=== PATIENT | male | born 1945 | race Caucasian/White ===

== ENCOUNTER 2017-11-26 10:06 | Observation (INO) ==
[2017-11-26 11:00] LABS: Basophils # 0.1 K/mcL (0.0-0.2); Basophils % 0.7 %; Eosinophils # 0.3 K/mcL (0.0-0.6); Eosinophils % 2.5 %; Hematocrit 37.3 % (37.5-50.1); Hemoglobin 13.3 g/dL (12.9-16.9); Immature Granulocytes % 0.4 % (0-4); Lymphocytes # 0.7 K/mcL (0.6-4.6); Lymphocytes % 7.1 %; Mean Corpuscular HGB Conc 35.7 g/dL (31.6-35.5); Mean Corpuscular Hemoglobin 33.3 pg (28.0-33.3); Mean Corpuscular Volume 93.5 fL (83.0-100.0); Mean Platelet Volume 11.9 fL (9.4-12.4); Monocytes # 0.7 K/mcL (0.0-1.3); Monocytes % 6.5 %; Neutrophils # 8.2 K/mcL (1.6-8.9); Platelet Count 136 K/mcL (140-400); Red Blood Count 3.99 M/mcL (4.19-5.50); Red Cell Distribution Width 13.7 % (11.5-14.5); Segmented Neutrophils % 82.8 %
[2017-11-26 11:39] LABS: Albumin 4.5 g/dL (3.5-5.7); Bilirubin,Direct 0.1 mg/dL (0.0-0.2); Bilirubin,Indirect 0.8 mg/dL (0.0-1.2); Bilirubin,Total 0.9 mg/dL (0.3-1.0); Carbon Dioxide 21 mEq/L (23-29); Chloride 108 mEq/L (98-107); Potassium 3.9 mEq/L (3.5-5.1); Sodium 137 mEq/L (136-145)
[2017-11-26 11:45] LABS: Alanine Aminotransferase 6 Units/L (7-52); Albumin/Globulin Ratio 2.4 (1.1-2.2); Alkaline Phosphatase 85 Units/L (34-104); Aspartate Amino Transferase 14 Units/L (13-39); BUN/Creatinine Ratio 22 (6-26); Blood Urea Nitrogen 28 mg/dL (8-23); Globulin 1.9 g/dL (2.4-3.5); Glucose 170 mg/dL (70-105); Lipase 19 Units/L (11-82); Osmolality,Calculated 293 (280-300); Total Protein 6.4 g/dL (6.4-8.9); eGFR For African Americans > 60 (> 60); eGFR For Non-African Americans 56 (> 60)
--- NOTE | 2017-11-26 12:31 | Emergency Department Note ---
START Narrative - START START: I examined this patient and my medical decision-making was reviewed with the PROJECT ENGINEERING DIRECTOR/PA/Advanced Practice Nurse/Resident Physician. I agree with the documented findings, disposition and treatment plan as described except to the extent set forth below. I did see the patient spoke with him and examine home and he does have abdominal pain recent onset and on exam does have mild distention but no reproducible pain, no pulsatile abdominal mass. The abdomen is soft without rigidity, rebound, guarding. I have reviewed the labs. CT scan will be done. 1231 I did review the patient's EKG showed normal sinus rhythm with first-degree AV block without acute ischemic change [address] scan has been reviewed concerning for acute cholecystitis and this is discussed with surgery who recommends a ultrasound. 1521
--- NOTE | 2017-11-26 12:43 | Emergency Department Note ---
Disposition Clinical Impression: Cholecystitis Disposition: Admitted As Inpatient Condition: Good Abdominal Pain HPI - General Chief Complaint: ED Abdominal Pain Stated Complaint: abd pain Time Seen by Provider: 11/26/17 12:16 Source: patient Mode of arrival: private vehicle Limitations: no limitations Nursing Notes Reviewed: Yes Vital Signs Reviewed: Yes - History of Present Illness HPI Narrative: Mr Penaloza is 72 yo M denies medical history presented to [facility] ED with dull mid abdominal pain. Pain started while at home last night. He ate fried chicken, green beans, and peas for dinner, and was drinking a glass of Ice tea with onset of pain. His last bowel movement was 1.5 days ago. He's never had issues like this in the past. He denies taking medications or starting new medications recently. He attempted to "relieve pain with a glass of milk" but was unsuccessful. He has not been able to eat since last night due to pain. He reports associated distension of abdomen. He denies fever, chills, nausea, vomiting. Pain Scale: 8 - Related Data Home Medications Medication Instructions Recorded Confirmed Allopurinol [Zyloprim 300 MG] 300 mg PO DAILY 11/26/17 11/26/17 Amlodipine Besylate [Amlodipine 10 mg PO DAILY 11/26/17 11/26/17 Besylate] Atorvastatin [Lipitor] 10 mg PO HS 11/26/17 11/26/17 Carbidopa/Levodopa 1 tab PO TID 11/26/17 11/26/17 [Carbidopa-Levodopa 25-100 Tab] Diclofenac Sodium [Voltaren] 75 mg PO BID 11/26/17 11/26/17 Labetalol HCl [Labetalol HCl] 200 mg PO BID 11/26/17 11/26/17 Losartan Potassium [Cozaar] 100 mg PO DAILY 11/26/17 11/26/17 Omeprazole [PriLOSEC] 20 mg PO DAILY 11/26/17 11/26/17 OxyCODONE/APAP 5/325 [Percocet 1 tab PO Q8H PRN 11/26/17 11/26/17 5/325 MG] Allergies Allergy/AdvReac Type Severity Reaction Status Date / Time No Known Allergies Allergy Verified 11/26/17 10:15 All systems ED: reviewed and negative except as stated. Review of Systems: As Per HPI Abdominal Pain PMH - Past Medical History Medical history: Reports: hyperlipidemia, hypertension Male Surgical History: Reports: no surgical history Psychiatric history: Reports: no psych history - Social History Smoking status: Former smoker Alcohol use: Reports: none Drug use: Reports: none Physical Exam - General Limitations: no limitations General appearance: alert, in no apparent distress - Head Head exam: atraumatic, normocephalic, normal inspection - Eye Eye exam: Present: normal appearance, PERRL, EOMI - ENT ENT exam: normal exam, normal oropharynx, mucous membranes moist - Chest Chest inspection: Present: normal inspection, symmetric chest wall rise - Respiratory Respiratory exam: Present: normal lung sounds bilaterally - Cardiovascular Cardiovascular exam: Present: regular rate, normal rhythm, normal heart sounds - Abdominal Exam Abdominal exam: Present: soft, Non-Tender, distention, normal bowel sounds. Absent: diminished bowel sounds, hyperactive bowel sounds, hypoactive bowel sounds, organomegaly, trauma, Tenorio's sign, Rovsing's sign, tenderness at McBurney's Point, ascites, mass, bruit, pulsatile mass, hernia, scar Abdominal tenderness: Present: moderate Course Course Narrative: patient is laying comfortable and is hemodynamically stable on admission. labs ordered, and due to nature of abdominal pain, will order abdominal CT. Vital Signs Temperature 97.8 F 11/26/17 10:12 Pulse Rate 96 11/26/17 10:12 Respiratory Rate 18 11/26/17 10:12 Blood Pressure 139/82 11/26/17 10:12 O2 Sat by Pulse Oximetry 96 11/26/17 10:12 Temperature 99.2 F 11/27/17 06:36 Pulse Rate 66 11/27/17 06:36 Respiratory Rate 16 11/27/17 06:36 Blood Pressure 157/79 11/27/17 06:36 O2 Sat by Pulse Oximetry 95 11/27/17 06:36 Oxygen Delivery Oxygen Delivery Room Air Abdominal Pain - MDM Narrative Medical decision making narrative: gastroenteritis vs possible ischemic bowel vs possible perforation. CT abd w/ contrast shows cholecystitis, which is confirmed by Ultrasound. - Lab Data Result diagrams: 11/26/17 10:34 11/26/17 10:34 Lab Results 11/26/17 11/26/17 11/26/17 Range/Units 10:34 10:34 12:55 WBC 9.9 (4.3-11.1) K/mcL RBC 3.99 L (4.19-5.50) M/mcL Hgb 13.3 (12.9-16.9) g/dL Hct 37.3 L (37.5-50.1) % MCV 93.5 (83.0-100.0) fL MCH 33.3 (28.0-33.3) pg MCHC 35.7 H (31.6-35.5) g/dL RDW 13.7 (11.5-14.5) % Plt Count 136 L (140-400) K/mcL MPV 11.9 (9.4-12.4) fL Immature Gran % 0.4 (0-4) % Seg Neutrophils % 82.8 % Lymphocytes % 7.1 % Monocytes % 6.5 % Eosinophils % 2.5 % Basophils % 0.7 % Neutrophils # 8.2 (1.6-8.9) K/mcL Lymphocytes # 0.7 (0.6-4.6) K/mcL Monocytes # 0.7 (0.0-1.3) K/mcL Eosinophils # 0.3 (0.0-0.6) K/mcL Basophils # 0.1 (0.0-0.2) K/mcL Sodium 137 (136-145) mEq/L Potassium 3.9 (3.5-5.1) mEq/L Chloride 108 H (98-107) mEq/L Carbon Dioxide 21 L (23-29) mEq/L BUN 28 H (8-23) mg/dL Creatinine 1.26 (0.70-1.30) mg/dL Est GFR ( Amer) > 60 (> 60) Est GFR (Non-Af Amer) 56 L (> 60) BUN/Creatinine Ratio 22 (6-26) Glucose 170 H (70-105) mg/dL Calculated Osmolality 293 (280-300) Calcium 9.0 (8.6-10.3) mg/dL Total Bilirubin 0.9 (0.3-1.0) mg/dL Direct Bilirubin 0.1 (0.0-0.2) mg/dL Indirect Bilirubin 0.8 (0.0-1.2) mg/dL AST 14 (13-39) Units/L ALT 6 L (7-52) Units/L Alkaline Phosphatase 85 (34-104) Units/L Serum Total Protein 6.4 (6.4-8.9) g/dL Albumin 4.5 (3.5-5.7) g/dL Globulin 1.9 L (2.4-3.5) g/dL Albumin/Globulin Ratio 2.4 H (1.1-2.2) Lipase 19 (11-82) Units/L Urine Color Yellow (Yellow) Urine Clarity Clear (Clear) Urine pH 6.0 (5.0-8.0) pH Units Ur Specific [place] 1.021 (1.010-1.025) Urine Protein Negative (Neg-Trace) mg/dL Urine Glucose (UA) 250 H (Normal) mg/dL Urine Ketones Negative (Negative) mg/dL Urine Blood Negative (Negative) Urine Nitrite Negative (Negative) Urine Bilirubin Negative (Negative) Urine Urobilinogen Normal (Normal) mg/dL Ur Leukocyte Esterase Negative (Negative) Ur Culture Indicated? NO (NO)
[2017-11-26 13:14] LABS: Bilirubin,Urine Negative (Negative); Blood,Urine Negative (Negative); Clarity,Urine Clear (Clear); Color,Urine Yellow (Yellow); Glucose,Urine (UA) 250 mg/dL (Normal); Ketones,Urine Negative (Negative); Leukocyte Esterase,Urine Negative (Negative); Nitrite,Urine Negative (Negative); Protein,Urine Negative (Neg-Trace); Specific Gravity,Urine 1.021 (1.010-1.025); Urobilinogen,Urine Normal (Normal)
[2017-11-26] MEDS ORDERED: Piperacillin/Tazobactam 3.375 GM in Water for inj. (sterile) 20 ML IVP ONE (16:18)
[2017-11-26] MEDS ORDERED: Ondansetron 4 MG/2 ML VIAL IVP PRN (17:13)
--- NOTE | 2017-11-26 17:35 | General Surg History&Physical ---
Date of Encounter: 11/26/17 Time of Encounter: 17:31 Assessment and Plan (1) Cholecystitis, acute with cholelithiasis Current Visit: Yes Status: Acute 72M with acute cholecystitis; NPO IVF abx consented for lap maday The assessment and plan as outlined above was discussed with the patient and/or family members who expressed understanding and agreement. All questions were answered. Qualifiers: Cholelithiasis location: gallbladder Biliary obstruction: without biliary obstruction Qualified Code(s): K80.00 - Calculus of gallbladder with acute cholecystitis without obstruction History of Present Illness Chief complaint: abdominal pain HPI: Mr. Penaloza is a 72 year old male h/o HTN and gout presents with one day history of RUQ pain. The pain was post prandial (after eating chicken wings, mashed potatoes) with associated nausea and abdominal distension. No reports of fevers , chills. in addition the patient states that this is the first time having such pain. His concern however is that a friend of his had similar issues, but on the far end of the spectrum resulting in a two week stay. Surgery was consulted for management recommendations. Past Med Surg Social Fam HX - Past Medical History Medical history: hyperlipidemia, hypertension Psychiatric history: no psych history - Past Surgical History Surgical History: no surgical history - Social History Smoking Status: Former smoker Smokeless Tobacco Status: No Alcohol use: none Drug use: none Medications and Allergies Allopurinol [Zyloprim 300 MG] 300 mg PO DAILY 11/26/17 [History] Amlodipine Besylate [Amlodipine Besylate] 10 mg PO DAILY 11/26/17 [History] Atorvastatin [Lipitor] 10 mg PO HS 11/26/17 [History] Carbidopa/Levodopa [Carbidopa-Levodopa 25-100 Tab] 1 tab PO TID 11/26/17 [ History] Diclofenac Sodium [Voltaren] 75 mg PO BID 11/26/17 [History] Labetalol HCl [Labetalol HCl] 200 mg PO BID 11/26/17 [History] Losartan Potassium [Cozaar] 100 mg PO DAILY 11/26/17 [History] Omeprazole [PriLOSEC] 20 mg PO DAILY 11/26/17 [History] OxyCODONE/APAP 5/325 [Percocet 5/325 MG] 1 tab PO Q8H PRN 11/26/17 [History] 3 Allergy/AdvReac Type Severity Reaction Status Date / Time No Known Allergies Allergy Verified 11/26/17 10:15 Review of Systems All systems PM: A 10-system review of systems was performed and is negative for pertinent findings except as documented above in the HPI. General Surgery Exam Initial Vital Signs Temp Pulse Resp BP Pulse Ox 97.8 F 96 18 139/82 96 11/26/17 10:12 11/26/17 10:12 11/26/17 10:12 11/26/17 10:12 11/26/17 10:12 - Eyes normal ocular movement - ENT normocephalic - Neck no masses - Respiratory normal expansion, normal respiratory effort - Cardiovascular Cardiovascular exam: Present: RRR - Abdomen Abdomen general surgery: Present: soft, tender Abdominal Tenderness: Present: epigastic, RUQ - Integumentary Integumentary general surgery: Present: warm and dry - Neurologic Present: CN 2-12 grossly intact - Psychiatric Psychiatric general surgery: Present: A&Ox3 Results - Labs 11/26/17 10:34 11/26/17 10:34 Abnormal lab results RBC 3.99 M/mcL (4.19-5.50) L 11/26/17 10:34 Hct 37.3 % (37.5-50.1) L 11/26/17 10:34 MCHC 35.7 g/dL (31.6-35.5) H 11/26/17 10:34 Plt Count 136 K/mcL (140-400) L 11/26/17 10:34 Chloride 108 mEq/L (98-107) H 11/26/17 10:34 Carbon Dioxide 21 mEq/L (23-29) L 11/26/17 10:34 BUN 28 mg/dL (8-23) H 11/26/17 10:34 Est GFR (Non-Af Amer) 56 (> 60) L 11/26/17 10:34 Glucose 170 mg/dL (70-105) H 11/26/17 10:34 ALT 6 Units/L (7-52) L 11/26/17 10:34 Globulin 1.9 g/dL (2.4-3.5) L 11/26/17 10:34 Albumin/Globulin Ratio 2.4 (1.1-2.2) H 11/26/17 10:34 Urine Glucose (UA) 250 mg/dL (Normal) H 11/26/17 12:55 Diabetes panel 11/26/17 Range/Units 10:34 Sodium 137 (136-145) mEq/L Potassium 3.9 (3.5-5.1) mEq/L Chloride 108 H (98-107) mEq/L Carbon Dioxide 21 L (23-29) mEq/L BUN 28 H (8-23) mg/dL Creatinine 1.26 (0.70-1.30) mg/dL Glucose 170 H (70-105) mg/dL Calcium 9.0 (8.6-10.3) mg/dL AST 14 (13-39) Units/L ALT 6 L (7-52) Units/L Alkaline Phosphatase 85 (34-104) Units/L Albumin 4.5 (3.5-5.7) g/dL Calcium panel 11/26/17 Range/Units 10:34 Calcium 9.0 (8.6-10.3) mg/dL Albumin 4.5 (3.5-5.7) g/dL Pituitary panel 11/26/17 Range/Units 10:34 Sodium 137 (136-145) mEq/L Potassium 3.9 (3.5-5.1) mEq/L Chloride 108 H (98-107) mEq/L Carbon Dioxide 21 L (23-29) mEq/L BUN 28 H (8-23) mg/dL Creatinine 1.26 (0.70-1.30) mg/dL Glucose 170 H (70-105) mg/dL Calcium 9.0 (8.6-10.3) mg/dL Adrenal panel 11/26/17 Range/Units 10:34 Sodium 137 (136-145) mEq/L Potassium 3.9 (3.5-5.1) mEq/L Chloride 108 H (98-107) mEq/L Carbon Dioxide 21 L (23-29) mEq/L BUN 28 H (8-23) mg/dL Creatinine 1.26 (0.70-1.30) mg/dL Glucose 170 H (70-105) mg/dL Calcium 9.0 (8.6-10.3) mg/dL Total Bilirubin 0.9 (0.3-1.0) mg/dL AST 14 (13-39) Units/L ALT 6 L (7-52) Units/L Alkaline Phosphatase 85 (34-104) Units/L Albumin 4.5 (3.5-5.7) g/dL All other labs normal. - Imaging CT scan - abdomen: report reviewed, image reviewed CT scan - pelvis: report reviewed, image reviewed US - abdomen: report reviewed, image reviewed (all imaging was reviewed and interpreted by me)
[2017-11-26] MEDS ORDERED: *HR* FentaNYL (PF) 100 MCG/2 ML VIAL IVP PRN (19:30)
[2017-11-26] MEDS: Carbidopa/Levodopa 25/100 TABLET PO SCH (20:55)
[2017-11-27] MEDS ORDERED: 0.9 % Sodium Chloride 1,000 ML IVC SCH (08:45)
[2017-11-27] MEDS: Carbidopa/Levodopa 25/100 TABLET PO SCH (08:46)
[2017-11-27] MEDS ORDERED: amLODIPine 5 MG TABLET PO SCH (09:00)
[2017-11-27 11:01] VITALS: BP 155/78
[2017-11-27] MEDS ORDERED: Lidocaine -MPF 4% 5 ML AMPUL ONE (13:46)
[2017-11-27] MEDS ORDERED: *HR* Propofol 200 MG/20 ML VIAL IVP ONE (13:46)
[2017-11-27] MEDS ORDERED: Lidocaine -MPF 2% 2 ML VIAL ONE (13:46)
[2017-11-27] MEDS ORDERED: *HR* FentaNYL (PF) 100 MCG/2 ML VIAL ONE (13:46)
[2017-11-27] MEDS ORDERED: *HR* Rocuronium Bromide 50 MG/5 ML VIAL ONE (13:46)
--- NOTE | 2017-11-27 15:39 | General Surgery Progress Note ---
<NataliiaAnnie H - Last Filed: 11/27/17 15:33> Date of Encounter: 11/27/17 Time of Encounter: 10:00 - Assessment and Plan (1) Cholecystitis, acute with cholelithiasis Status: Acute Patient scheduled for lap maday today to be performed by Dr. Barron. -Patient, along with family present at bedside, stated he was going to leave AGAINST MEDICAL ADVICE. He stated frustration that his operation had been scheduled for later in the day. It was explained to the patient that other less stable patient had to be taken to the OR first. It was explained that he was being treated with antibiotics, anti-emetics, and antipyretics in the meantime, and that his clinical picture was improving. -After a lengthy discussion, it was explained to the patient that he had an obstructing stone causing his symptoms, it was explained that if he left the hospital, he was at risk for deteriorating further. It was recommended that he stay and have the operation in as little as one hour from the point of discussion. The patient stated he was unwilling to stay. 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 It was reiterated to the patient that his situation could very easily deteriorate. It was recommended that he stay and undergo an operation. Patient expressed understanding, and stated that he was going to leave the hospital. -Patient left AMA in the afternoon on 11/27/2017. Qualifiers: Cholelithiasis location: gallbladder Biliary obstruction: without biliary obstruction Qualified Code(s): K80.00 - Calculus of gallbladder with acute cholecystitis without obstruction Subjective Patient reports: no new complaints, still having pain, voiding w/o difficulty ( Patient awaiting laparoscopic cholecystectomy. He states frustration that his surgery is scheduled later in the day. He wishes to have his operation right away. ), afebrile Objective Vital Signs - Last 8 Hours Temp Pulse Resp BP Pulse Ox 11/27/17 10:56 98.7 F 76 14 155/78 95 Intake and Output 11/26/17 11/27/17 11/27/17 23:59 07:59 15:59 Intake Total 0 / 20 100 / 100 0 / 0 Output Total 225 / 225 300 / 300 0 / 0 Balance -225 / -205 -200 / -200 0 / 0 Intake: IV Fluids 100 / 100 Zosyn 3.375 GM In 0.9 % Sodium 100 / 100 Chloride 100 ML @ 25 mls/hr IVPB Q8HR RICHIE Rx#:[id number] Oral 0 / 0 0 / 0 0 / 0 Output: Urine 225 / 225 300 / 300 0 / 0 Other: Meal NPO Breakfast # Voids 1 Weight 85.411 kg 85.185 kg Blood Glucose* 125 125 Patient Weight 11/27/17 23:59 Weight 85.185 kg - General physical appearance well developed, well nourished, moderate pain - Respiratory normal expansion, normal respiratory effort, clear to auscultation - Cardiovascular Cardiovascular exam: Present: RRR, no murmurs/rubs/gallops - Abdomen Abdomen: Present: bowel sounds present, soft, distended, tender. Absent: guarding, rigid Hernia: none - Neurologic CN 2-12 grossly intact, normal coordination, normal sensation - Musculoskeletal normal gait, normal posture - Psychiatric oriented to time, oriented to person, oriented to place, speech is normal, memory intact - Labs 11/26/17 10:34 11/26/17 10:34 Consult Discharge Plan - Plan Referrals: NONE,PCP [Primary Care Provider] - <Raphael Barron - Last Filed: 11/27/17 19:25> Date of Encounter: 11/27/17 - Assessment and Plan (1) Cholecystitis, acute with cholelithiasis Status: Acute Qualifiers: Cholelithiasis location: gallbladder Biliary obstruction: without biliary obstruction Qualified Code(s): K80.00 - Calculus of gallbladder with acute cholecystitis without obstruction Objective Intake and Output 11/27/17 11/27/17 11/27/17 07:59 15:59 23:59 Intake Total 100 / 100 0 / 0 Output Total 300 / 300 0 / 0 Balance -200 / -200 0 / 0 Intake: IV Fluids 100 / 100 Zosyn 3.375 GM In 0.9 % Sodium 100 / 100 Chloride 100 ML @ 25 mls/hr IVPB Q8HR RICHIE Rx#:[id number] Oral 0 / 0 0 / 0 Output: Urine 300 / 300 0 / 0 Other: Meal NPO Breakfast Weight 85.185 kg Blood Glucose* 125 125 Patient Weight 11/27/17 23:59 Weight 85.185 kg - Labs 11/26/17 10:34 11/26/17 10:34 - Attending Attestation Patient seen and examined; I have reviewed all pertinent labs, imaging, and notes, including this one. I agree with the above plan and wish to add the following... Patient with calculous cholecystitis; Patient decided to leave AMA due to long wait and continued delay to get to the operating room. Before leaving I discussed the risk of leaving including recurrence of symptoms (which I explained that because of the stone is a high probability), worse symptom recurrence resulting in sepsis, respiratory failure and intubation. The patient understood and still wished to leave AMA.
--- NOTE | 2017-11-28 08:39 | Electrocardiograph Report ---
[facility] Test Date: 2017-11-26 Pat Name: Keri Penaloza Department: 102 Room: 3A36 Gender: M Transportation Officer: : 1945 Requested By: Sharad Nielsen Order Number: [id number] Reading MD: Sigifredo Dial MD Measurements Intervals [place] Rate: 63 P: 101 AK: 230 QRS: 9 QRSD: 102 T: 31 QT: 404 QTc: 410 Interpretive Statements SINUS RHYTHM WITH FIRST DEGREE AV BLOCK Electronically Signed On 11-28-2017 8:37:03 EST by Sigifredo Dial MD
== END 2017-11-27 14:28 | disposition left against medical advice (07) ==
LOC: 3ANU 10:06 → EMEROO 10:06 → 3ANU 18:35
PROVIDERS: ADMIT Surgery; ATTEND Surgery

== ENCOUNTER 2019-11-07 17:03 | Inpatient (IN) ==
[2019-11-07 17:40] LABS: Hematocrit 33.4 % (37.5-50.1); Hemoglobin 11.4 g/dL (12.9-16.9); Lymphocytes # 0.4 K/mcL (0.6-4.6); Mean Corpuscular HGB Conc 34.1 g/dL (31.6-35.5); Mean Corpuscular Hemoglobin 34.4 pg (28.0-33.3); Mean Corpuscular Volume 100.9 fL (83.0-100.0); Mean Platelet Volume 11.1 fL (9.4-12.4); Monocytes # 0.8 K/mcL (0.0-1.3); Platelet Count 143 K/mcL (140-400); Red Blood Count 3.31 M/mcL (4.19-5.50); Red Cell Distribution Width 14.6 % (11.5-14.5); White Blood Count 9.7 K/mcL (4.3-11.1)
[2019-11-07 17:56] LABS: INR 1.3; Prothrombin Time 14.6 Seconds (9.4-12.1)
[2019-11-07 17:59] LABS: Activated Partial Thrombo Time 47.8 Seconds (26.0-36.0)
[2019-11-07] MEDS: 0.9 % Sodium Chloride 1,000 ML IVC SCH ×2 (17:59→19:00)
[2019-11-07 18:02] LABS: Albumin 3.3 g/dL (3.5-5.7); Albumin/Globulin Ratio 1.3 (1.1-2.2); Bilirubin,Direct 0.3 mg/dL (0.0-0.2); Bilirubin,Indirect 0.7 mg/dL (0.0-1.0); Calcium 8.5 mg/dL (8.6-10.3); Globulin 2.6 g/dL (2.4-3.5); Magnesium 1.7 mg/dL (1.6-2.6); Neutrophils # 8.5 K/mcL (1.6-8.9); Phosphorous 3.6 mg/dL (2.7-4.5); Platelet Estimate Normal (Normal); Potassium 3.9 mEq/L (3.5-5.1); Total Protein 5.9 g/dL (6.4-8.9); Troponin I 0.03 ng/mL (< 0.04)
[2019-11-07] MEDS ORDERED: 0.9 % Sodium Chloride 500 ML IVC ONE (18:49)
[2019-11-07] MEDS ORDERED: methylPREDNISolone 125 MG/2 ML VIAL IVP ONE (18:50)
[2019-11-07 19:59] LABS: Bilirubin,Urine Small (Negative); Blood,Urine Negative (Negative); Clarity,Urine Cloudy (Clear); Color,Urine Dark Yellow (Yellow); Glucose,Urine (UA) Normal (Normal); Ketones,Urine Negative (Negative); Leukocyte Esterase,Urine Trace (Negative); Nitrite,Urine Negative (Negative); PH,Urine 5.5 pH Units (5.0-8.0); Protein,Urine 100 mg/dL (Neg-Trace); Specific Gravity,Urine 1.024 (1.010-1.025); Urobilinogen,Urine Normal (Normal)
[2019-11-07 20:00] LABS: Bacteria,Urine None Seen per hpf (None-Few); RBC,Urine 0-3 per hpf (0-3); Squamous Epithelial Cell,Urine Many per lpf (None-Few)
[2019-11-07 20:12] LABS: Hyaline Casts,Urine Few per lpf (None-Few)
[2019-11-07 20:13] LABS: Amorphous Sediment,Urine Few per hpf (Few); Mucus,Urine Few per lpf (Few)
[2019-11-07 20:15] LABS: Sperm,Urine Present (None Seen)
[2019-11-07] MEDS ORDERED: Piperacillin/Tazobactam 4.5 GM in 0.9 % Sodium Chloride Mini Bag 100 ML IVPB ONE (20:16)
[2019-11-07] MEDS ORDERED: Piperacillin/Tazobactam 3.375 GM in 0.9 % Sodium Chloride Mini Bag 100 ML IVPB ONE (20:20)
[2019-11-07] MEDS ORDERED: Naloxone 0.4 MG/ML INJ IVP PRN (20:41)
[2019-11-07] MEDS ORDERED: 0.9 % Sodium Chloride 1,000 ML IVC SCH (20:45)
[2019-11-07] MEDS ORDERED: *HR* Heparin 5,000 UNIT/ML VIAL IVP ONE (21:25)
[2019-11-07] MEDS ORDERED: *HR* Heparin 5,000 UNIT/ML VIAL IVP PRN (21:25)
[2019-11-07] MEDS: Heparin 25,000 UNIT/250 ML D5W 25,000 UNIT/250 ML IV.SOLN IVC SCH (23:21)
[2019-11-07] MEDS: Azithromycin 500 MG in 0.9 % Sodium Chloride 250 ML IVPB SCH (23:53)
[2019-11-08] MEDS ORDERED: *HR* Metoprolol 5 MG/5 ML VIAL IVP PRN (00:14)
[2019-11-08] MEDS: Piperacillin/Tazobactam 3.375 GM in 0.9 % Sodium Chloride Mini Bag 100 ML IVPB SCH ×3 (04:24→18:46)
[2019-11-08 05:38] LABS: Basophils % 0.2 %; Hematocrit 30.9 % (37.5-50.1); Hemoglobin 10.6 g/dL (12.9-16.9); Immature Granulocytes % 0.7 % (0-4); Lymphocytes # 0.3 K/mcL (0.6-4.6); Lymphocytes % 5.6 %; Mean Corpuscular HGB Conc 34.3 g/dL (31.6-35.5); Mean Corpuscular Hemoglobin 33.8 pg (28.0-33.3); Mean Corpuscular Volume 98.4 fL (83.0-100.0); Mean Platelet Volume 11.2 fL (9.4-12.4); Monocytes # 0.2 K/mcL (0.0-1.3); Monocytes % 2.6 %; Neutrophils # 5.2 K/mcL (1.6-8.9); Platelet Count 136 K/mcL (140-400); Red Blood Count 3.14 M/mcL (4.19-5.50); Red Cell Distribution Width 14.8 % (11.5-14.5); Segmented Neutrophils % 90.9 %; White Blood Count 5.7 K/mcL (4.3-11.1)
[2019-11-08 05:43] LABS: INR 1.3
[2019-11-08 05:59] LABS: Activated Partial Thrombo Time 115.9 Seconds (26.0-36.0)
[2019-11-08 06:00] LABS: Albumin 3.1 g/dL (3.5-5.7); Albumin/Globulin Ratio 1.3 (1.1-2.2); Bilirubin,Total 0.6 mg/dL (0.3-1.0); Calcium 7.9 mg/dL (8.6-10.3); Globulin 2.4 g/dL (2.4-3.5); Potassium 3.9 mEq/L (3.5-5.1); Total Protein 5.5 g/dL (6.4-8.9)
[2019-11-08 06:26] LABS: Platelet Estimate Normal (Normal)
[2019-11-08 10:25] LABS: Thyroid Stimulating Hormone 0.814 mcIU/mL (0.340-5.600)
[2019-11-08] MEDS: *HR* Heparin 5,000 UNIT/ML VIAL IVP PRN ×2 (10:48→18:47)
[2019-11-08] MEDS ORDERED: SODIUM CHLORIDE/NAHCO3/KCL/PEG 4,000 ML SOLN.RECON PO ONE (17:00)
[2019-11-08] MEDS: Heparin 25,000 UNIT/250 ML D5W 25,000 UNIT/250 ML IV.SOLN IVC SCH (21:48)
[2019-11-08] MEDS: Azithromycin 500 MG in 0.9 % Sodium Chloride 250 ML IVPB SCH (21:51)
[2019-11-08 22:28] LABS: Adenovirus F 40/41 PCR Not detected (Not detect); Astrovirus PCR Not detected (Not detect); Campylobacter by PCR Not detected (Not detect); Cryptosporidium by PCR Not detected (Not detect); Cyclospora cayetanensis PCR Not detected (Not detect); E. coli O157 by PCR Not detected (Not detect); Entamoeba histolytica PCR Not detected (Not detect); Enteroaggregative E.coli(EAEC) Not detected (Not detect); Enteropathogenic E.coli(EPEC) Not detected (Not detect); Enterotoxigenic E.coli (ETEC) Not detected (Not detect); Giardia lamblia PCR Not detected (Not detect); Norovirus GI/GII PCR Not detected (Not detect); Plesiomonas shigelloides PCR Not detected (Not detect); Rotavirus A PCR Not detected (Not detect); Salmonella PCR Not detected (Not detect); Sapovirus PCR Not detected (Not detect); Shig/EnteroinvasiveE coli EIEC Not detected (Not detect); Shigalike tox-prod E coli STEC Not detected (Not detect); Vibrio PCR Not detected (Not detect); Vibrio cholerae PCR Not detected (Not detect); Yersinia enterocolitica PCR Not detected (Not detect)
[2019-11-08 22:31] LABS: C.difficile Toxin A/B Gene PCR DETECTED (Not detect)
[2019-11-09] MEDS: Piperacillin/Tazobactam 3.375 GM in 0.9 % Sodium Chloride Mini Bag 100 ML IVPB SCH ×2 (01:57→09:36)
[2019-11-09 02:10] LABS: Hematocrit 30.8 % (37.5-50.1); Hemoglobin 10.3 g/dL (12.9-16.9); Mean Corpuscular HGB Conc 33.4 g/dL (31.6-35.5); Mean Corpuscular Hemoglobin 34.3 pg (28.0-33.3); Mean Corpuscular Volume 102.7 fL (83.0-100.0); Mean Platelet Volume 11.8 fL (9.4-12.4); Platelet Count 130 K/mcL (140-400); Red Cell Distribution Width 14.8 % (11.5-14.5); White Blood Count 4.7 K/mcL (4.3-11.1)
[2019-11-09 02:36] LABS: BUN/Creatinine Ratio 30 (6-26); Blood Urea Nitrogen 39 mg/dL (8-23); Calcium 7.9 mg/dL (8.6-10.3); Carbon Dioxide 14 mEq/L (23-29); Chloride 111 mEq/L (98-107); Glucose 140 mg/dL (70-105); Magnesium 2.2 mg/dL (1.6-2.6); Osmolality,Calculated 288 (280-300); Potassium 4.1 mEq/L (3.5-5.1); Sodium 133 mEq/L (136-145); eGFR For African Americans > 60 (> 60); eGFR For Non-African Americans 53 (> 60)
[2019-11-09] MEDS: *HR* Heparin 5,000 UNIT/ML VIAL IVP PRN (03:08)
[2019-11-09 04:19] LABS: Lymphocytes # 0.6 K/mcL (0.6-4.6); Monocytes # 0.2 K/mcL (0.0-1.3); Platelet Estimate Normal (Normal)
[2019-11-09 04:20] LABS: Poikilocytosis 1+ (Not Present)
[2019-11-09] MEDS ORDERED: Vancomycin Oral Soln 125 MG/2.5 ML UDC PO SCH (09:00)
[2019-11-09] MEDS: Apixaban 5 MG TABLET PO SCH ×2 (12:20→21:11)
[2019-11-09] MEDS: Vancomycin Oral Soln 125 MG/2.5 ML UDC PO SCH ×3 (12:21→21:12)
[2019-11-09 13:51] LABS: Hepatitis B Surface Antigen Nonreactive (Nonreactive)
[2019-11-09 14:19] LABS: Hepatitis C Virus Antibody Nonreactive (Nonreactive)
[2019-11-09 14:21] LABS: Hepatitis A Antibody IgM Nonreactive (Nonreactive); Hepatitis B Core IgM Nonreactive (Nonreactive)
[2019-11-09] MEDS: Carbidopa/Levodopa 25/100 TABLET PO SCH ×2 (17:00→21:11)
[2019-11-09] MEDS ORDERED: Apixaban 5 MG TABLET PO SCH (21:00)
[2019-11-10 04:08] LABS: BUN/Creatinine Ratio 29 (6-26); Blood Urea Nitrogen 31 mg/dL (8-23); Carbon Dioxide 16 mEq/L (23-29); Chloride 108 mEq/L (98-107); Glucose 125 mg/dL (70-105); Osmolality,Calculated 282 (280-300); Potassium 4.3 mEq/L (3.5-5.1); Sodium 132 mEq/L (136-145); eGFR For African Americans > 60 (> 60); eGFR For Non-African Americans > 60 (> 60)
[2019-11-10 04:10] LABS: Hemoglobin 10.1 g/dL (12.9-16.9); Mean Corpuscular HGB Conc 33.7 g/dL (31.6-35.5); Mean Corpuscular Hemoglobin 33.6 pg (28.0-33.3); Mean Corpuscular Volume 99.7 fL (83.0-100.0); Mean Platelet Volume 10.7 fL (9.4-12.4); Platelet Count 162 K/mcL (140-400); Red Blood Count 3.01 M/mcL (4.19-5.50); Red Cell Distribution Width 14.4 % (11.5-14.5); White Blood Count 3.6 K/mcL (4.3-11.1)
[2019-11-10] MEDS: Vancomycin Oral Soln 125 MG/2.5 ML UDC PO SCH ×4 (08:59→20:18)
[2019-11-10] MEDS: Carbidopa/Levodopa 25/100 TABLET PO SCH ×3 (08:59→20:18)
[2019-11-10] MEDS: levoFLOXacin 750 MG TABLET PO SCH (08:59)
[2019-11-10] MEDS: Apixaban 5 MG TABLET PO SCH ×2 (08:59→20:18)
[2019-11-10] MEDS ORDERED: Acetaminophen 325 MG TABLET PO ONE (20:21)
[2019-11-11 05:41] LABS: Mean Corpuscular HGB Conc 34.7 g/dL (31.6-35.5); Mean Corpuscular Hemoglobin 33.2 pg (28.0-33.3); Mean Corpuscular Volume 95.8 fL (83.0-100.0); Platelet Count 173 K/mcL (140-400); Red Blood Count 3.55 M/mcL (4.19-5.50); White Blood Count 3.1 K/mcL (4.3-11.1)
[2019-11-11 05:43] LABS: Hemoglobin 11.8 g/dL (12.9-16.9)
[2019-11-11 06:07] LABS: BUN/Creatinine Ratio 24 (6-26); Blood Urea Nitrogen 27 mg/dL (8-23); Calcium 8.2 mg/dL (8.6-10.3); Carbon Dioxide 19 mEq/L (23-29); Chloride 105 mEq/L (98-107); Glucose 117 mg/dL (70-105); Osmolality,Calculated 282 (280-300); Potassium 4.2 mEq/L (3.5-5.1); Sodium 133 mEq/L (136-145); eGFR For African Americans > 60 (> 60); eGFR For Non-African Americans > 60 (> 60)
[2019-11-11 06:15] LABS: Lymphocytes # 1.2 K/mcL (0.6-4.6); Monocytes # 0.3 K/mcL (0.0-1.3); Neutrophils # 1.7 K/mcL (1.6-8.9)
[2019-11-11 06:16] LABS: Platelet Estimate Normal (Normal); Reactive Lymphocytes Present (Not Present)
[2019-11-11 07:10] VITALS: BP 128/86
[2019-11-11] MEDS: levoFLOXacin 750 MG TABLET PO SCH (09:56)
[2019-11-11] MEDS: Apixaban 5 MG TABLET PO SCH (09:56)
[2019-11-11] MEDS: Carbidopa/Levodopa 25/100 TABLET PO SCH (09:56)
[2019-11-11] MEDS: Vancomycin Oral Soln 125 MG/2.5 ML UDC PO SCH (10:00)
[2019-11-11 10:17] LABS: Serine Protease-3 Antibody 0 AU/mL (0-19)
[2019-11-11 10:18] LABS: AFP Tumor Marker Non-Pregnant 1 ng/mL (0-9); F-Actin (sm muscle) Ab IgG 8 Units (0-19)
[2019-11-11 10:28] LABS: ANA IgG by ELISA NONE DETECTED (None Detected)
== END 2019-11-11 11:06 | disposition home or self-care (01) | DRG 871 ==
LOC: EMEROOARM 17:03 → INTOOBSV 20:56 → SUATTDRO 20:56 → 3ANU 20:56
PROVIDERS: ADMIT Internal Medicine; ATTEND Internal Medicine

== ENCOUNTER 2019-12-01 08:03 | Inpatient (IN) ==
[2019-12-01] MEDS ORDERED: 0.9 % Sodium Chloride 1,000 ML IVC ONE ×3 (08:10→10:19)
[2019-12-01 08:41] LABS: Hematocrit 30.2 % (37.5-50.1); Hemoglobin 10.4 g/dL (12.9-16.9); Lymphocytes # 0.8 K/mcL (0.6-4.6); Mean Corpuscular HGB Conc 34.4 g/dL (31.6-35.5); Mean Corpuscular Hemoglobin 34.2 pg (28.0-33.3); Mean Corpuscular Volume 99.3 fL (83.0-100.0); Mean Platelet Volume 11.2 fL (9.4-12.4); Platelet Count 138 K/mcL (140-400); Red Blood Count 3.04 M/mcL (4.19-5.50); Red Cell Distribution Width 16.8 % (11.5-14.5); White Blood Count 3.1 K/mcL (4.3-11.1)
[2019-12-01 08:46] LABS: INR 1.6; Prothrombin Time 18.6 Seconds (9.4-12.1)
[2019-12-01 09:01] LABS: Calcium 8.3 mg/dL (8.6-10.3); Potassium 3.6 mEq/L (3.5-5.1)
[2019-12-01 09:26] LABS: Bilirubin,Urine Small (Negative); Blood,Urine Negative (Negative); Clarity,Urine Cloudy (Clear); Color,Urine Dark Yellow (Yellow); Glucose,Urine (UA) Normal (Normal); Ketones,Urine Negative (Negative); Leukocyte Esterase,Urine Trace (Negative); Nitrite,Urine Negative (Negative); PH,Urine 5.5 pH Units (5.0-8.0); Protein,Urine 30 mg/dL (Neg-Trace); Specific Gravity,Urine 1.024 (1.010-1.025); Urobilinogen,Urine Normal (Normal)
[2019-12-01 09:32] LABS: Monocytes # 0.3 K/mcL (0.0-1.3)
[2019-12-01 09:32] LABS: Bacteria,Urine None Seen per hpf (None-Few); Squamous Epithelial Cell,Urine Many per lpf (None-Few)
[2019-12-01 09:34] LABS: Platelet Estimate Slight Decrease (Normal)
[2019-12-01 09:49] LABS: Granular Casts,Urine Few per lpf (None Seen); Hyaline Casts,Urine Few per lpf (None-Few)
[2019-12-01] MEDS ORDERED: Isovue-370 500 ML BOTTLE IVP ONE (10:04)
[2019-12-01] MEDS ORDERED: Piperacillin/Tazobactam 3.375 GM in 0.9 % Sodium Chloride Mini Bag 100 ML IVPB ONE ×2 (10:08→10:27)
[2019-12-01] MEDS ORDERED: Naloxone 0.4 MG/ML INJ IVP PRN (12:11)
[2019-12-01] MEDS ORDERED: Ondansetron 4 MG/2 ML VIAL IVP PRN (12:11)
[2019-12-01] MEDS: 0.9 % Sodium Chloride 1,000 ML IVC SCH (13:13)
[2019-12-01 14:31] LABS: Adenovirus Not Detected (Not Detect); Coronavirus 229E Not Detected (Not Detect); Coronavirus HKU1 Not Detected (Not Detect); Coronavirus NL63 Not Detected (Not Detect); Coronavirus OC43 Not Detected (Not Detect); Human Metapneumovirus Not Detected (Not Detect); Human Rhinovirus/Enterovirus Not Detected (Not Detect); Influenza A Subtype 2009 H1 Not Detected (Not Detect)
[2019-12-01 14:32] LABS: Bordetella Pertussis Not Detected (Not Detect); Chlamydophila pneumoniae Not Detected (Not Detect); Influenza B Not Detected (Not Detect); Mycoplasma pneumoniae Not Detected (Not Detect); Parainfluenza Virus 1 Not Detected (Not Detect); Parainfluenza Virus 2 Not Detected (Not Detect); Parainfluenza Virus 3 Not Detected (Not Detect); Parainfluenza Virus 4 Not Detected (Not Detect); Respiratory Syncytial Virus Not Detected (Not Detect)
[2019-12-01] MEDS: Piperacillin/Tazobactam 3.375 GM in 0.9 % Sodium Chloride Mini Bag 100 ML IVPB SCH ×2 (14:32→21:41)
[2019-12-01] MEDS: *HR* OxyCODONE/APAP 5/325 TABLET PO PRN ×2 (15:40→21:41)
[2019-12-01] MEDS: *HR* Heparin 5,000 UNIT/ML VIAL SQ SCH (17:15)
[2019-12-01 18:17] LABS: C.difficile Toxin A/B Gene PCR DETECTED (Not detect); Campylobacter by PCR Not detected (Not detect)
[2019-12-01 18:18] LABS: Adenovirus F 40/41 PCR Not detected (Not detect); Astrovirus PCR Not detected (Not detect); Cryptosporidium by PCR Not detected (Not detect); Cyclospora cayetanensis PCR Not detected (Not detect); E. coli O157 by PCR Not detected (Not detect); Entamoeba histolytica PCR Not detected (Not detect); Enteroaggregative E.coli(EAEC) Not detected (Not detect); Enteropathogenic E.coli(EPEC) Not detected (Not detect); Enterotoxigenic E.coli (ETEC) Not detected (Not detect); Giardia lamblia PCR Not detected (Not detect); Norovirus GI/GII PCR Not detected (Not detect); Plesiomonas shigelloides PCR Not detected (Not detect); Rotavirus A PCR Not detected (Not detect); Salmonella PCR Not detected (Not detect); Sapovirus PCR Not detected (Not detect); Shig/EnteroinvasiveE coli EIEC Not detected (Not detect); Shigalike tox-prod E coli STEC Not detected (Not detect); Vibrio PCR Not detected (Not detect); Vibrio cholerae PCR Not detected (Not detect); Yersinia enterocolitica PCR Not detected (Not detect)
[2019-12-01] MEDS: Carbidopa/Levodopa 25/100 TABLET PO SCH (21:42)
[2019-12-02 02:50] LABS: Eosinophils % 0.5 %; Hemoglobin 9.8 g/dL (12.9-16.9); Immature Granulocytes % 1.5 % (0-4); Red Cell Distribution Width 17.2 % (11.5-14.5)
[2019-12-02 02:51] LABS: Hematocrit 29.1 % (37.5-50.1); Lymphocytes # 0.5 K/mcL (0.6-4.6); Lymphocytes % 25.4 %; Mean Corpuscular HGB Conc 33.7 g/dL (31.6-35.5); Mean Corpuscular Hemoglobin 34.3 pg (28.0-33.3); Mean Corpuscular Volume 101.7 fL (83.0-100.0); Mean Platelet Volume 11.1 fL (9.4-12.4); Monocytes # 0.4 K/mcL (0.0-1.3); Monocytes % 19.8 %; Platelet Count 130 K/mcL (140-400); Red Blood Count 2.86 M/mcL (4.19-5.50); Segmented Neutrophils % 52.8 %
[2019-12-02 03:02] LABS: Magnesium 1.5 mg/dL (1.6-2.6); Potassium 3.7 mEq/L (3.5-5.1)
[2019-12-02 03:15] LABS: Neutrophils # 1.1 K/mcL (1.6-8.9)
[2019-12-02 03:33] LABS: Anisocytosis 1+ (Not Present); Large Platelets Present (Not Present); Macrocytosis Present (Not Present); Platelet Estimate Slight Decrease (Normal)
[2019-12-02 03:41] LABS: Folate 13.6 ng/mL (3.0-16.0)
[2019-12-02 03:49] LABS: Ferritin 665 ng/mL (20-250); Iron < 10 mcg/dL (65-175); Transferrin 93 mg/dL (203-362)
[2019-12-02] MEDS: *HR* Heparin 5,000 UNIT/ML VIAL SQ SCH ×2 (05:47→16:33)
[2019-12-02] MEDS: Piperacillin/Tazobactam 3.375 GM in 0.9 % Sodium Chloride Mini Bag 100 ML IVPB SCH (05:47)
[2019-12-02] MEDS: 0.9 % Sodium Chloride 1,000 ML IVC SCH (05:53)
[2019-12-02] MEDS: Carbidopa/Levodopa 25/100 TABLET PO SCH ×3 (09:01→21:41)
[2019-12-02] MEDS: MetroNIDAZOLE 500 MG/100 ML 500 MG/100 ML BAG IVPB SCH ×2 (09:02→16:32)
[2019-12-02] MEDS: Vancomycin Oral Soln 125 MG/2.5 ML UDC PO SCH ×4 (09:03→21:40)
[2019-12-02] MEDS: *HR* OxyCODONE/APAP 5/325 TABLET PO PRN (14:41)
[2019-12-03 02:09] LABS: Hematocrit 31.5 % (37.5-50.1); Hemoglobin 10.8 g/dL (12.9-16.9); Mean Corpuscular HGB Conc 34.3 g/dL (31.6-35.5); Mean Corpuscular Volume 99.1 fL (83.0-100.0); Mean Platelet Volume 10.6 fL (9.4-12.4); Platelet Count 170 K/mcL (140-400); Red Blood Count 3.18 M/mcL (4.19-5.50)
[2019-12-03 02:11] LABS: White Blood Count 3.4 K/mcL (4.3-11.1)
[2019-12-03 02:28] LABS: BUN/Creatinine Ratio 25 (6-26); Blood Urea Nitrogen 28 mg/dL (8-23); Calcium 8.1 mg/dL (8.6-10.3); Carbon Dioxide 15 mEq/L (23-29); Chloride 109 mEq/L (98-107); Glucose 129 mg/dL (70-105); Osmolality,Calculated 283 (280-300); Potassium 3.7 mEq/L (3.5-5.1); Sodium 133 mEq/L (136-145); eGFR For African Americans > 60 (> 60); eGFR For Non-African Americans > 60 (> 60)
[2019-12-03] MEDS: MetroNIDAZOLE 500 MG/100 ML 500 MG/100 ML BAG IVPB SCH ×3 (02:42→15:07)
[2019-12-03] MEDS: *HR* OxyCODONE/APAP 5/325 TABLET PO PRN ×3 (02:44→20:50)
[2019-12-03 02:49] LABS: Lymphocytes # 0.8 K/mcL (0.6-4.6); Monocytes # 0.4 K/mcL (0.0-1.3); Neutrophils # 2.2 K/mcL (1.6-8.9)
[2019-12-03 02:50] LABS: Anisocytosis 1+ (Not Present); Large Platelets Present (Not Present); Platelet Estimate Normal (Normal); Reactive Lymphocytes Present (Not Present)
[2019-12-03] MEDS: *HR* Heparin 5,000 UNIT/ML VIAL SQ SCH (05:54)
[2019-12-03] MEDS: Carbidopa/Levodopa 25/100 TABLET PO SCH ×3 (07:43→20:40)
[2019-12-03] MEDS: Vancomycin Oral Soln 125 MG/2.5 ML UDC PO SCH ×4 (07:43→20:40)
[2019-12-03] MEDS: amLODIPine 5 MG TABLET PO SCH (15:30)
[2019-12-03] MEDS: Apixaban 5 MG TABLET PO SCH (20:40)
[2019-12-04] MEDS: MetroNIDAZOLE 500 MG/100 ML 500 MG/100 ML BAG IVPB SCH ×4 (01:22→23:50)
[2019-12-04 02:51] LABS: Hematocrit 32.5 % (37.5-50.1); Mean Corpuscular HGB Conc 33.8 g/dL (31.6-35.5); Mean Corpuscular Hemoglobin 33.8 pg (28.0-33.3); Mean Platelet Volume 10.7 fL (9.4-12.4); Platelet Count 183 K/mcL (140-400); Red Blood Count 3.25 M/mcL (4.19-5.50)
[2019-12-04 02:55] LABS: BUN/Creatinine Ratio 22 (6-26); Blood Urea Nitrogen 24 mg/dL (8-23); Calcium 8.2 mg/dL (8.6-10.3); Carbon Dioxide 19 mEq/L (23-29); Chloride 106 mEq/L (98-107); Glucose 127 mg/dL (70-105); Magnesium 1.5 mg/dL (1.6-2.6); Osmolality,Calculated 282 (280-300); Potassium 3.7 mEq/L (3.5-5.1); Sodium 133 mEq/L (136-145); eGFR For African Americans > 60 (> 60); eGFR For Non-African Americans > 60 (> 60)
[2019-12-04 03:25] LABS: Lymphocytes # 1.3 K/mcL (0.6-4.6); Monocytes # 0.2 K/mcL (0.0-1.3); Neutrophils # 3.5 K/mcL (1.6-8.9)
[2019-12-04 03:26] LABS: Large Platelets Present (Not Present); Platelet Estimate Normal (Normal); Reactive Lymphocytes Present (Not Present)
[2019-12-04] MEDS: Carbidopa/Levodopa 25/100 TABLET PO SCH ×3 (09:25→20:32)
[2019-12-04] MEDS: Apixaban 5 MG TABLET PO SCH ×2 (09:31→20:32)
[2019-12-04] MEDS: Vancomycin Oral Soln 125 MG/2.5 ML UDC PO SCH ×4 (09:32→20:32)
[2019-12-04] MEDS: amLODIPine 5 MG TABLET PO SCH (09:32)
[2019-12-04] MEDS ORDERED: 0.9 % Sodium Chloride 1,000 ML IVC SCH (10:15)
[2019-12-04] MEDS: *HR* OxyCODONE/APAP 5/325 TABLET PO PRN (18:46)
[2019-12-05] MEDS: *HR* OxyCODONE/APAP 5/325 TABLET PO PRN ×3 (03:04→15:48)
[2019-12-05 07:12] LABS: Basophils % 0.3 %; Eosinophils % 0.5 %; Hematocrit 33.4 % (37.5-50.1); Hemoglobin 10.8 g/dL (12.9-16.9); Immature Granulocytes % 2.4 % (0-4); Lymphocytes # 1.1 K/mcL (0.6-4.6); Lymphocytes % 17.4 %; Mean Corpuscular HGB Conc 32.3 g/dL (31.6-35.5); Mean Corpuscular Hemoglobin 32.4 pg (28.0-33.3); Mean Corpuscular Volume 100.3 fL (83.0-100.0); Mean Platelet Volume 10.1 fL (9.4-12.4); Monocytes # 0.6 K/mcL (0.0-1.3); Monocytes % 10.1 %; Neutrophils # 4.3 K/mcL (1.6-8.9); Platelet Count 179 K/mcL (140-400); Red Blood Count 3.33 M/mcL (4.19-5.50); Red Cell Distribution Width 16.7 % (11.5-14.5); Segmented Neutrophils % 69.3 %; White Blood Count 6.2 K/mcL (4.3-11.1)
[2019-12-05 07:33] LABS: BUN/Creatinine Ratio 21 (6-26); Blood Urea Nitrogen 18 mg/dL (8-23); Calcium 7.9 mg/dL (8.6-10.3); Carbon Dioxide 19 mEq/L (23-29); Chloride 106 mEq/L (98-107); Glucose 136 mg/dL (70-105); Osmolality,Calculated 278 (280-300); Potassium 3.8 mEq/L (3.5-5.1); Sodium 132 mEq/L (136-145); eGFR For African Americans > 60 (> 60); eGFR For Non-African Americans > 60 (> 60)
[2019-12-05 08:05] LABS: Toxic Granulation Present (Not Present)
[2019-12-05 08:06] LABS: Platelet Estimate Normal (Normal)
[2019-12-05] MEDS: amLODIPine 5 MG TABLET PO SCH (09:26)
[2019-12-05] MEDS: Apixaban 5 MG TABLET PO SCH ×2 (09:27→21:58)
[2019-12-05] MEDS: Carbidopa/Levodopa 25/100 TABLET PO SCH ×3 (09:27→21:58)
[2019-12-05] MEDS: Vancomycin Oral Soln 125 MG/2.5 ML UDC PO SCH ×4 (09:28→21:58)
[2019-12-05] MEDS: MetroNIDAZOLE 500 MG/100 ML 500 MG/100 ML BAG IVPB SCH (09:28)
[2019-12-06 06:04] LABS: Basophils % 0.4 %; Eosinophils % 0.4 %; Hematocrit 33.9 % (37.5-50.1); Hemoglobin 11.3 g/dL (12.9-16.9); Immature Granulocytes % 4.4 % (0-4); Lymphocytes # 1.1 K/mcL (0.6-4.6); Lymphocytes % 14.5 %; Mean Corpuscular HGB Conc 33.3 g/dL (31.6-35.5); Mean Corpuscular Hemoglobin 33.3 pg (28.0-33.3); Mean Platelet Volume 10.4 fL (9.4-12.4); Monocytes # 0.7 K/mcL (0.0-1.3); Monocytes % 9.6 %; Neutrophils # 5.5 K/mcL (1.6-8.9); Platelet Count 198 K/mcL (140-400); Red Blood Count 3.39 M/mcL (4.19-5.50); Red Cell Distribution Width 16.5 % (11.5-14.5); Segmented Neutrophils % 70.7 %; White Blood Count 7.7 K/mcL (4.3-11.1)
[2019-12-06 06:23] LABS: BUN/Creatinine Ratio 16 (6-26); Blood Urea Nitrogen 15 mg/dL (8-23); Carbon Dioxide 22 mEq/L (23-29); Chloride 104 mEq/L (98-107); Glucose 130 mg/dL (70-105); Osmolality,Calculated 277 (280-300); Potassium 3.9 mEq/L (3.5-5.1); Sodium 132 mEq/L (136-145); eGFR For African Americans > 60 (> 60); eGFR For Non-African Americans > 60 (> 60)
[2019-12-06] MEDS: amLODIPine 5 MG TABLET PO SCH (08:51)
[2019-12-06] MEDS: *HR* OxyCODONE/APAP 5/325 TABLET PO PRN ×3 (08:51→21:38)
[2019-12-06] MEDS: Apixaban 5 MG TABLET PO SCH ×2 (08:51→21:20)
[2019-12-06] MEDS: Vancomycin Oral Soln 125 MG/2.5 ML UDC PO SCH ×4 (08:52→21:20)
[2019-12-06] MEDS: Carbidopa/Levodopa 25/100 TABLET PO SCH ×3 (08:52→21:21)
[2019-12-07] MEDS: *HR* OxyCODONE/APAP 5/325 TABLET PO PRN (05:27)
[2019-12-07 07:05] VITALS: BP 112/73
[2019-12-07 09:03] LABS: Hematocrit 35.7 % (37.5-50.1); Mean Corpuscular HGB Conc 33.6 g/dL (31.6-35.5); Mean Corpuscular Hemoglobin 32.7 pg (28.0-33.3); Mean Corpuscular Volume 97.3 fL (83.0-100.0); Mean Platelet Volume 10.2 fL (9.4-12.4); Platelet Count 259 K/mcL (140-400); Red Blood Count 3.67 M/mcL (4.19-5.50); Red Cell Distribution Width 16.4 % (11.5-14.5); White Blood Count 10.7 K/mcL (4.3-11.1)
[2019-12-07 09:18] LABS: BUN/Creatinine Ratio 16 (6-26); Blood Urea Nitrogen 15 mg/dL (8-23); Calcium 8.4 mg/dL (8.6-10.3); Carbon Dioxide 24 mEq/L (23-29); Chloride 98 mEq/L (98-107); Glucose 130 mg/dL (70-105); Osmolality,Calculated 277 (280-300); Sodium 132 mEq/L (136-145); eGFR For African Americans > 60 (> 60); eGFR For Non-African Americans > 60 (> 60)
[2019-12-07] MEDS: Apixaban 5 MG TABLET PO SCH (09:37)
[2019-12-07] MEDS: Carbidopa/Levodopa 25/100 TABLET PO SCH (09:37)
[2019-12-07] MEDS: Vancomycin Oral Soln 125 MG/2.5 ML UDC PO SCH (09:38)
[2019-12-07 10:27] LABS: Lymphocytes # 1.6 K/mcL (0.6-4.6); Monocytes # 0.5 K/mcL (0.0-1.3); Neutrophils # 8.6 K/mcL (1.6-8.9); Platelet Estimate Normal (Normal)
== END 2019-12-07 12:42 | DRG 872 ==
LOC: 2NNU 08:03 → EMEROOARM 08:03 → SUATTDRO 12:08 → 2NNU 12:28 → SUATTDRO 12-02 13:54 → 3ANU 12-04 10:49
PROVIDERS: ADMIT Internal Medicine; ATTEND Family Medicine

== ENCOUNTER 2020-01-25 09:36 | Observation (INO) ==
[2020-01-25] MEDS ORDERED: 0.9 % Sodium Chloride 1,000 ML IVC ONE ×3 (09:44→13:56)
[2020-01-25 10:17] LABS: Basophils % 0.2 %; Eosinophils % 0.2 %; Hemoglobin 10.5 g/dL (12.9-16.9); Immature Granulocytes % 0.9 % (0-4); Lymphocytes # 1.5 K/mcL (0.6-4.6); Lymphocytes % 7.8 %; Mean Corpuscular HGB Conc 32.8 g/dL (31.6-35.5); Mean Corpuscular Volume 94.4 fL (83.0-100.0); Mean Platelet Volume 10.5 fL (9.4-12.4); Monocytes # 1.1 K/mcL (0.0-1.3); Monocytes % 5.6 %; Platelet Count 364 K/mcL (140-400); Red Blood Count 3.39 M/mcL (4.19-5.50); Red Cell Distribution Width 14.8 % (11.5-14.5); Segmented Neutrophils % 85.3 %; White Blood Count 18.8 K/mcL (4.3-11.1)
[2020-01-25 11:05] LABS: Alanine Aminotransferase < 3 Units/L (7-52); Albumin 3.2 g/dL (3.5-5.7); Albumin/Globulin Ratio 1.2 (1.1-2.2); Alkaline Phosphatase 68 Units/L (34-104); Amylase 17 Units/L (29-103); Aspartate Amino Transferase 5 Units/L (13-39); BUN/Creatinine Ratio 19 (6-26); Bilirubin,Direct 0.1 mg/dL (0.0-0.2); Bilirubin,Indirect 0.5 mg/dL (0.0-1.0); Bilirubin,Total 0.6 mg/dL (0.3-1.0); Blood Urea Nitrogen 63 mg/dL (8-23); Calcium 8.4 mg/dL (8.6-10.3); Carbon Dioxide 15 mEq/L (23-29); Chloride 104 mEq/L (98-107); Globulin 2.7 g/dL (2.4-3.5); Glucose 179 mg/dL (70-105); Lipase < 3 Units/L (11-82); Magnesium 1.3 mg/dL (1.6-2.6); Osmolality,Calculated 296 (280-300); Potassium 3.9 mEq/L (3.5-5.1); Sodium 132 mEq/L (136-145); Total Protein 5.9 g/dL (6.4-8.9); Troponin I < 0.03 ng/mL (< 0.04); eGFR For African Americans 22 (> 60); eGFR For Non-African Americans 18 (> 60)
[2020-01-25 11:24] LABS: Bilirubin,Urine Small (Negative); Blood,Urine Negative (Negative); Clarity,Urine Cloudy (Clear); Color,Urine Dark Yellow (Yellow); Glucose,Urine (UA) Normal (Normal); Ketones,Urine Trace mg/dL (Negative); Leukocyte Esterase,Urine Trace (Negative); Nitrite,Urine Negative (Negative); Protein,Urine 30 mg/dL (Neg-Trace); Specific Gravity,Urine 1.025 (1.010-1.025); Urobilinogen,Urine Normal (Normal)
[2020-01-25 11:27] LABS: Bacteria,Urine None Seen per hpf (None-Few); Hyaline Casts,Urine Few per lpf (None-Few); Squamous Epithelial Cell,Urine Many per lpf (None-Few)
[2020-01-25] MEDS ORDERED: MetroNIDAZOLE 500 MG/100 ML 500 MG/100 ML BAG IVPB ONE (11:28)
[2020-01-25] MEDS ORDERED: Vancomycin Oral Soln 125 MG/2.5 ML UDC PO STA (11:28)
[2020-01-25] MEDS ORDERED: Acetaminophen 325 MG TABLET PO PRN (12:20)
[2020-01-25] MEDS ORDERED: *HR* Promethazine 25 MG/ML VIAL IVP PRN (12:20)
[2020-01-25] MEDS ORDERED: Naloxone 0.4 MG/ML INJ IVP PRN (12:20)
[2020-01-25] MEDS ORDERED: Ringers Solution, Lactated 1,000 ML IVC SCH ×2 (12:30→16:08)
[2020-01-25 12:52] LABS: Adenovirus F 40/41 PCR Not detected (Not detect); Astrovirus PCR Not detected (Not detect); Campylobacter by PCR Not detected (Not detect); Cryptosporidium by PCR Not detected (Not detect); Cyclospora cayetanensis PCR Not detected (Not detect); E. coli O157 by PCR Not detected (Not detect); Entamoeba histolytica PCR Not detected (Not detect); Enteroaggregative E.coli(EAEC) Not detected (Not detect); Enteropathogenic E.coli(EPEC) Not detected (Not detect); Enterotoxigenic E.coli (ETEC) Not detected (Not detect); Giardia lamblia PCR Not detected (Not detect); Norovirus GI/GII PCR Not detected (Not detect); Plesiomonas shigelloides PCR Not detected (Not detect); Rotavirus A PCR Not detected (Not detect); Salmonella PCR Not detected (Not detect); Sapovirus PCR Not detected (Not detect); Shig/EnteroinvasiveE coli EIEC Not detected (Not detect); Shigalike tox-prod E coli STEC Not detected (Not detect); Vibrio PCR Not detected (Not detect); Vibrio cholerae PCR Not detected (Not detect); Yersinia enterocolitica PCR Not detected (Not detect)
[2020-01-25 13:29] LABS: C.difficile Toxin A/B Gene PCR DETECTED (Not detect)
[2020-01-25] MEDS ORDERED: 0.9 % Sodium Chloride 1,000 ML ONE (13:55)
[2020-01-25] MEDS ORDERED: Carbidopa/Levodopa 25/100 TABLET PO SCH (15:00)
[2020-01-25 15:50] VITALS: BP 92/55
[2020-01-25] MEDS ORDERED: Vancomycin Oral Soln 125 MG/2.5 ML UDC PO SCH (17:00)
[2020-01-25 17:06] LABS: Basophils % 0.2 %; Eosinophils % 0.3 %; Hematocrit 29.6 % (37.5-50.1); Hemoglobin 9.6 g/dL (12.9-16.9); Immature Granulocytes % 0.8 % (0-4); Lymphocytes # 1.3 K/mcL (0.6-4.6); Lymphocytes % 9.8 %; Mean Corpuscular HGB Conc 32.4 g/dL (31.6-35.5); Mean Corpuscular Hemoglobin 30.4 pg (28.0-33.3); Mean Corpuscular Volume 93.7 fL (83.0-100.0); Mean Platelet Volume 10.2 fL (9.4-12.4); Monocytes # 0.9 K/mcL (0.0-1.3); Monocytes % 6.9 %; Neutrophils # 10.5 K/mcL (1.6-8.9); Platelet Count 282 K/mcL (140-400); Red Blood Count 3.16 M/mcL (4.19-5.50); Red Cell Distribution Width 14.8 % (11.5-14.5); White Blood Count 12.8 K/mcL (4.3-11.1)
[2020-01-25 17:27] LABS: Calcium 7.8 mg/dL (8.6-10.3); Magnesium 1.5 mg/dL (1.6-2.6); Potassium 3.9 mEq/L (3.5-5.1)
[2020-01-25] MEDS ORDERED: *HR* Heparin 5,000 UNIT/ML VIAL SQ SCH (18:00)
[2020-01-25] MEDS ORDERED: Lactobacillus 1 EACH CAP.SPRINK PO SCH (21:00)
[2020-01-26] MEDS ORDERED: allopurinoL 300 MG TABLET PO SCH (09:00)
== END 2020-01-25 18:39 | disposition other institution (70) ==
LOC: EMEROOARM 09:36 → 2ANU 09:36
PROVIDERS: ADMIT Internal Medicine; ATTEND Internal Medicine